=== PATIENT | female | born 1990 | race Caucasian/White ===

== ENCOUNTER 2016-05-04 13:37 | Emergency (ER) | payer OTHER ==
[~2016-05-04] VITALS: Ht 157.5 cm; Wt 55.4 kg
[~2016-05-04 13:37] MED LIST: ABILIFY10 MG PO; AMOXICILLIN875 MG PO; BENADRYL ALLERG25 MG PO; BUSPAR5 MG PO; CALAN40 MG PO; CELEXA10 MG PO; CELEXA20 MG PO; CELEXA40 MG PO; CITRATE OF MAG296 ML PO; CLONAZEPAM0.5 MG PO; FAMVIR500 MG PO; IBUPROFEN800 MG PO; IMITREX100 MG PO; IMITREX50 MG PO; KLONOPIN0.5 M1 PO; KLONOPIN1 M2 PO; MIRENA52 MG IY; MULTIPLE VITAM1 EACH PO; NEXIUM20 MG PO; PERCOCET 5/31 TABLET PO; PRILOSEC20 MG PO; RELPAX20 MG PO; TOPAMAX50 MG PO; TORADOL10 MG PO; TRAZODONE HCL50 MG PO; TUMS500 MG PO; TYLENOL EXTRA500 MG PO; TYLENOL WITH C1 EACH PO; WELLBUTRIN XL300 MG PO; ZOFRAN4 MG PO; ZOLOFT50 MG PO; [UNRECOGNIZED DRUG - REMARK]
[2016-05-04 15:04] LABS: HEMATOCRIT 42.5 % (36.0-46.0); MCH 33.3 PG (29.0-34.0); MCHC 35.5 G/DL (30.0-36.0); MCV 93.8 FL (83-99); MEAN PLAT.VOLUME 9.1 uM^3 (9.5-12.4); PLATELET COUNT 305 K/uL (156-360); RBC DIS.WIDTH-CV 12.1 % (11.8-14.6); RBC DIS.WIDTH-SD 40.2 % (39-53); RED BLOOD COUNT 4.53 M/uL (3.80-5.20); WHITE BLOOD COUNT 14.2 K/uL (4.1-10.2)
[2016-05-04 15:14] LABS: CHLORIDE 106 mEq/L (99-109); SODIUM 140 mEq/L (136-147)
[2016-05-04 15:15] LABS: GLUCOSE 85 mg/dL (70-99)
[2016-05-04 15:17] LABS: ANION GAP 11 MEQ/L (2-14)
[2016-05-04 15:19] LABS: GFR ESTIMATE (CALCULATED) > 59 mL/min/
[2016-05-04 15:20] LABS: UREA NITROGEN (BUN) 9 mg/dL (9-23)
[2016-05-04] MEDS ORDERED: ESTRADIOL2 MG PO (15:41)
[2016-05-04] MEDS ORDERED: OXYCODONE-APAP1 EACH PO (15:41)
[2016-05-04] MEDS ORDERED: ESTRADIOL0.5 MG PO (15:41)
[2016-05-04] MEDS ORDERED: LAMOTRIGINE100 MG PO (15:41)
[2016-05-04] MEDS ORDERED: ESTRADIOL1 MG PO (15:41)
[2016-05-04 16:18] LABS: TROP-I INTERPRETATION NEGATIVE; TROPONIN-I < 0.01 ng/mL (0.0-0.30)
[2016-05-04 17:31] LABS: TROP-I INTERPRETATION NEGATIVE; TROPONIN-I < 0.01 ng/mL (0.0-0.30)
[2016-05-04] MEDS ORDERED: INDOCIN25 MG PO (18:25)
[2016-05-04] MEDS ORDERED: TESSALON PERLE100 MG PO (18:25)
[2016-05-04] MEDS ORDERED: ZITHROMAX250 MG PO (18:25)
[2016-05-04 18:41] VITALS: BP 116/72
== END 2016-05-04 18:42 | disposition home or self-care (01) ==
LOC: EME 13:37 → RME 13:37
PROVIDERS: Physician Assistant
DX: S29.011A Strain of muscle and tendon of front wall of thorax, initial encounter (principal); J18.0 Bronchopneumonia, unspecified organism; J45.909 Unspecified asthma, uncomplicated; K21.9 Gastro-esophageal reflux disease without esophagitis; F17.200 Nicotine dependence, unspecified, uncomplicated
CPT/HCPCS: 71020; 80048; 84484; 85027; 87651 90; 93005; 99281; 99284